=== PATIENT | male | born 1965 | race Caucasian/White ===

== ENCOUNTER 2020-01-12 03:52 | Emergency (ER) | payer SELFPAY ==
[~2020-01-12] VITALS: Ht 160 cm; Wt 59.0 kg
[2020-01-12] MEDS ORDERED: ACETAMINOPHEN 325MG TABLET PO ONE (04:45)
[2020-01-12] MEDS ORDERED: ACETAMINOPHEN 325MG TABLET PO STA (13:43)
[2020-01-12 15:00] VITALS: BP 151/89
== END 2020-01-12 15:45 | disposition home or self-care (01) ==
LOC: ER 03:52
DX: R05 Cough (principal); Z20.828 Contact with and (suspected) exposure to other viral communicable diseases; R00.0 Tachycardia, unspecified
CPT/HCPCS: 71045; 87635; 93005; 99285